=== PATIENT | female | born 1960 | race Caucasian/White ===

== ENCOUNTER → 2019-03-03 | Outpatient (CLI) | payer OTHER ==
--- NOTE | 2019-03-03 14:23 | REP ---
UNILATERAL MAMMOGRAM LEFT BREAST: Unilateral mammogram left breast performed in the MLO and CC projections. Comparison is made with prior studies including 06/05/2018, 05/14/2018, 08/13/2016 and 07/05/2014. Reportedly, there is a nodular density identified on the most recent study of 06/05/2018 for which 6-month followup was recommended. Family history of breast cancer at age 70 in mother. [facility] lifetime risk of breast cancer 16.6%. Mild to moderate scattered fibroglandular tissue is seen throughout the left breast. There is a stable intramammary lymph node bilaterally in the left breast. On the prior spot compression views 06/05/2018, a vague nodular density was seen medially. This is not seen on today's exam. No new nodule or clustered microcalcifications are seen. IMPRESSION: BIRADS 2: BI-RADS/ACR category 2 mammogram. Benign Findings. ACR 2 benign mammogram left breast. Previously suspected subcentimeter ill-defined nodular density medially in the left breast is not seen on today's exam. Parenchymal pattern is stable. Suggest followup bilateral mammogram in May 2019. This mammogram was interpreted with the aid of an FDA-approved computer-aided detection system. A. Negative x-ray reports should not delay biopsy if a dominant or clinically suspicious mass is present. B. Four to eight percent of cancers are not identified by x-ray. C. Adenosis and dense breasts may obscure an underlying neoplasm. The patient states she/he had a clinical breast exam in September 2018. The patient letter being requested is M1 Electronically Signed by Ángel Sanchez MD 03/03/2019 04:18 P
== END ==
LOC: M RAD 12:02
PROVIDERS: ATTEND Family Medicine
DX: R92.8 Other abnormal and inconclusive findings on diagnostic imaging of breast (principal)

== ENCOUNTER → 2019-06-11 | Outpatient (CLI) | payer OTHER ==
--- NOTE | 2019-06-11 10:32 | REPMRS ---
Patient History The patient states she has not had a clinical breast exam in over a year. Family history of breast cancer at age 70 in mother. Benign lumpectomy of the left breast, 1983. Outside priors scanned into PACs Digital Mammo Screening Bilat: June 11, 2019 - Exam #: [id number] Bilateral CC and MLO view(s) were taken. Technologist: Almita Cox, Technologist Prior study comparison: March 03, 2019, left breast digital mammo diagnostic unilateral performed at [facility]. May 14, 2018, bilateral digital woman screen mammo, performed at Outside Facility. August 13, 2016, bilateral digital woman screen mammo, performed at Outside Facility. FINDINGS: There are scattered fibroglandular densities. There is a moderate amount of residual fibroglandular tissue which is fairly symmetric. There is no interval development of dominant mass, architectural distortion, or grouped microcalcification typical of malignancy. There has been no change in the appearance of the mammogram from the prior studies. Assessment: BI-RADS/ACR category 1 mammogram. Negative Mammogram. Recommendation Routine screening mammogram of both breasts in 1 year (for women over age 40). This patient's Lifetime Breast Cancer RIsk is estimated at 16.2 %. This mammogram was interpreted with the aid of an FDA-approved computer-aided dectection system. Electronically Signed By: Alexander Ulrich MD 06/11/19 [id number]
== END ==
LOC: M RAD 09:33
PROVIDERS: ATTEND Nurse Practitioner Primary Care
DX: Z12.31 Encounter for screening mammogram for malignant neoplasm of breast (principal)

== ENCOUNTER → 2020-08-03 | Outpatient (CLI) | payer OTHER ==
--- NOTE | 2020-08-03 09:08 | REPMRS ---
Patient History The patient states she has not had a clinical breast exam in over a year. Family history of breast cancer at age 70 in mother. Benign lumpectomy of the left breast, 1982. 3D TOMOSYNTHESIS WAS PERFORMED. [facility] lifetime risk for breast cancer is 15.7%. Volpara breast density b. Digital Woman Screen Mammo: August 03, 2020 - Exam #: [id number] Bilateral CC and MLO view(s) were taken. Technologist: Fatimah Russo, Technologist Prior study comparison: June 11, 2019, bilateral digital mammo screening bilat, performed at [facility]. March 03, 2019, left breast digital mammo diagnostic unilateral, performed at [facility]. FINDINGS: There are scattered fibroglandular densities. There has been no change in the appearance of the mammogram from the prior studies. There is a mild amount of residual fibroglandular tissue which is fairly symmetric. There is no interval development of dominant mass, architectural distortion, or clustered microcalcification suggestive of malignancy. Assessment: BI-RADS/ACR category 1 mammogram. Negative Mammogram. Recommendation Routine screening mammogram in 1 year (for women over age 40). This mammogram was interpreted with the aid of an FDA-approved computer-aided dectection system. Electronically Signed By: Ángel Sanchez MD 08/03/20 [id number]
== END ==
LOC: M WHC 07:47
PROVIDERS: ATTEND Family Medicine
DX: Z12.31 Encounter for screening mammogram for malignant neoplasm of breast (principal); Z80.3 Family history of malignant neoplasm of breast

== ENCOUNTER → 2021-09-21 | Outpatient (CLI) | payer OTHER ==
--- NOTE | 2021-09-21 14:45 | REPMRS ---
Patient History The patient states she has not had a clinical breast exam in over a year. Patient is postmenopausal. Family history of breast cancer at age 70 in mother, breast cancer at age 70 in maternal aunt. Benign lumpectomy of the left breast, 1982. No Hormone Replacement Therapy Patient states no breast complaints today. Patient has signed MRS History Sheet. Pfizer vaccine 12/16/20, 01/06/21, booster 09/18/21 L arm. Digital Woman Screen Mammo: September 21, 2021 - Exam #: [id number] Bilateral CC and MLO view(s) were taken. Technologist: Eliana Loving, Technologist Prior study comparison: August 03, 2020, bilateral digital woman screen mammo performed at [facility]. June 11, 2019, bilateral digital mammo screening bilat, performed at [facility]. FINDINGS: There are scattered fibroglandular densities. Screening. Digital screening (2D) mammography was performed bilaterally in the CC and MLO projections. Additionally, breast tomosynthesis (3D mammography) was performed bilaterally in the CC and MLO projections. Todays exam was compared to the prior exam/exams. By history, the patient has no complaints of a palpable breast abnormality or other significant breast complaints. The breasts are unchanged in size and shape. There are no shama-soft tissue densities or spiculated masses. There is no internal architectural distortion.Once again, stable benign appearing calcifications are seen. There are no suspicious shama-calcific clusters. Skin thickening or nipple retraction is not present. IMPRESSION: BI-RADS Category 2- Benign Findings. There is no evidence of malignant alteration of the breasts. Followup examination recommended in one year. The Volpara volumetric breast density category is B, there are scattered areas of fibroglandular densities. This mammogram was read with the assistance of [employer],an FDA approved computer aided detection system for mammography. The lifetime Tyrer-Cuzick score is 21.4 % Due to the density of the breasts or Tyrer Cuzick score of 20% or greater, MRI/whole breast screening ultrasound is warranted. Negative x-ray reports should not delay surgical consultation if a dominant or clinically suspicious mass is present. Not all breast cancers can be identified by mammography. Therefore, we recommend that you continue to perform regular breast self-examination and physical examination and then promptly contact your physician of any concerns or changes. Adenosis and dense breasts may obscure an underlying neoplasm. Assessment: BI-RADS/ACR category 2 mammogram. Benign Findings. Recommendation Routine screening mammogram of both breasts in 1 year. Electronically Signed By: Swapnil Bundy DO 09/21/21 [id number]
== END ==
LOC: M WHC 13:09
PROVIDERS: ATTEND Family Medicine
DX: Z12.31 Encounter for screening mammogram for malignant neoplasm of breast (principal)

== ENCOUNTER → 2021-10-26 | Outpatient (CLI) | payer OTHER ==
[~2021-10-26] MED LIST: PROHANCE 279.3MG/ML 15ML VIAL As Ordered ONE; PROHANCE 279.3MG/ML 5ML VIAL As Ordered ONE
== END ==
LOC: M RAD 08:37
PROVIDERS: ATTEND Family Medicine
DX: Z80.3 Family history of malignant neoplasm of breast (principal)
CPT/HCPCS: A9576; C8908